=== PATIENT | male | born 1970 | race Two or more races ===

== ENCOUNTER 2017-08-09 09:07 | Inpatient (IN) | payer OTHER ==
[~2017-08-09] VITALS: Ht 160 cm; Wt 65.8 kg
[2017-08-09] MEDS ORDERED: INDOCIN25 MG PO (09:16)
[2017-08-09] MEDS ORDERED: MITIGARE0.6 MG PO (09:17)
== END 2017-08-12 13:45 | DRG 378 ==
LOC: ER 09:07 → SEC-K 21:09 → MEDI 08-10 02:24
PROC: BW21Y0Z Computerized Tomography (CT Scan) of Abdomen and Pelvis using Other Contrast, Unenhanced and Enhanced (ICD-10-PCS; 2017-08-09)
PROC: 0DB68ZX Excision of Stomach, Via Natural or Artificial Opening Endoscopic, Diagnostic (ICD-10-PCS; principal; 2017-08-11)
DX: K26.4 Chronic or unspecified duodenal ulcer with hemorrhage (principal); D62 Acute posthemorrhagic anemia; F10.288 Alcohol dependence with other alcohol-induced disorder; D69.59 Other secondary thrombocytopenia; R16.1 Splenomegaly, not elsewhere classified; K70.30 Alcoholic cirrhosis of liver without ascites; K29.00 Acute gastritis without bleeding